=== PATIENT | female | born 2000 | race Caucasian/White ===

== ENCOUNTER 2022-02-07 18:08 | Emergency (ER) | payer BC, SELFPAY ==
[2022-02-07] MEDS ORDERED: Morphine 4 MG/ML VIAL ONE ×2 (18:45→19:02)
== END 2022-02-07 21:11 | disposition home or self-care (01) ==
LOC: ERS 18:08
DX: S01.511A Laceration without foreign body of lip, initial encounter (principal); W55.12XA Struck by horse, initial encounter
CPT/HCPCS: 12011; 70450; 70486; 71045; 72072; 72125; 96372; J2270